=== PATIENT | male | born 1950 | race Caucasian/White ===

== ENCOUNTER 2016-09-15 19:28 | Inpatient (IN) | payer MEDICARE ==
[2016-09-15] MEDS ORDERED: SODIUM CHLORIDE 0.9% 2,000 ML ONE (19:50)
[2016-09-15] MEDS ORDERED: ACETAMINOPHEN 500 MG TABLET ONE (19:50)
[2016-09-15] MEDS ORDERED: ALBUTEROL/IPRATROPIUM 2.5/0.5 MG 3 ML/EACH DOSE ONE (19:58)
[2016-09-15 20:05] LABS: ABSOLUTE NEUTROPHIL COUNT 4.4 K/mm3 (1.8-7.7); BASO % 0.5 % (0.2-1.0); EOS % 0.2 % (0.9-2.9); HEMATOCRIT 41.3 % (32.0-52.0); HEMOGLOBIN 13.7 gm/l (14.0-18.0); IMM NEUT% 0.3 % (0-1); LYMPH # 0.4 (1.0-4.8); LYMPH % 7.1 % (15-45); MEAN CELL VOLUME 97.6 fl (80.0-94.0); MEAN CORPUSCULAR HEMOGLOBIN 32.4 pg (27.0-31.0); MEAN CORPUSCULAR HGB CONC 33.2 g/dl (33.0-37.0); MEAN PLATELET VOLUME 12.2 fl (7.4-10.4); MONO # 1.1 (0.0-0.8); MONO % 18.4 % (4-12); NEUT % 73.5 % (43-75); PLATELET COUNT 138 K/mm3 (130-400); RED CELL DISTRIBUTION WIDTH 15.2 % (11.5-14.5)
[2016-09-15 20:10] LABS: ALB/GLOB RATIO 1.4 (>1.0); ALBUMIN 4.2 gm/dL (3.5-5.7)
[2016-09-15 20:15] LABS: TROPONIN I 0.03 ng/ml (0.0-0.06)
[2016-09-15] MEDS ORDERED: CEFTRIAXONE 1 GRAM DUPLEX 50 ML IV ONE (20:31)
[2016-09-15] MEDS ORDERED: AZITHROMYCIN 500 MG VIAL ONE (20:32)
[2016-09-15] MEDS ORDERED: SODIUM CHLORIDE 0.9% 250 ML IV ONE (20:33)
--- NOTE | 2016-09-15 20:41 | RAD ---
History: Weakness with diagnosis of pneumonia 3 days ago. Comparison: None. Technique: 2 views Findings: Multilevel thoracic degenerative changes are present. The heart size is appropriate. There is blunting of the right costophrenic sulcus noted which may reflect a small amount of pleural fluid or pleural thickening. No gross consolidation is seen. The hilar and mediastinal structures are intact. Impression: 1. Blunting of the right costophrenic sulcus which may reflect pleural fluid or pleural thickening. 2. Multilevel thoracic degenerative changes. 3. No gross consolidation visualized.
[2016-09-15] MEDS ORDERED: Oseltamivir Phosphate 75 MG CAP ONE (20:58)
[2016-09-15] MEDS ORDERED: INSULIN ASPART (DOSE) 100 UNITS/1 ML SUB-Q PRN (21:38)
[2016-09-15] MEDS ORDERED: SODIUM CHLORIDE 0.9% 100 ML IV PRN (21:38)
[2016-09-15] MEDS ORDERED: BLISTEX LIPSTICK 1 EACH TP PRN (21:38)
[2016-09-15] MEDS ORDERED: CALCIUM CARBONATE 500 MG TAB.CHEW PO PRN (21:38)
[2016-09-15] MEDS ORDERED: MENTHOL/CETYLPYRD 1 EACH LOZENGE PO PRN (21:38)
[2016-09-15] MEDS ORDERED: MAGNESIUM HYDROXIDE 30 ML UDCUP PO PRN (21:38)
[2016-09-15] MEDS ORDERED: BISACODYL 10 MG SUP PR PRN (21:38)
[2016-09-15] MEDS ORDERED: BISACODYL 5 MG TABLET.EC PO PRN (21:38)
[2016-09-15] MEDS ORDERED: ENOXAPARIN SODIUM 40 MG/0.4 ML SYRINGE SUB-Q SCH (21:45)
[2016-09-15] MEDS ORDERED: INSULIN GLARGINE (DOSE) 100 UNITS/ML UNIT SUB-Q SCH (21:45)
[2016-09-15 21:51] VITALS: BMI 30.4
[2016-09-15] MEDS ORDERED: ALBUTEROL/IPRATROPIUM 2.5/0.5 MG 3 ML/EACH DOSE NEB PRN (21:51)
[2016-09-15] MEDS ORDERED: ALBUTEROL NEB 2.5 MG/3 ML VIAL.NEB NEB PRN (21:51)
[2016-09-15] MEDS ORDERED: PUMP TUBING ONE (22:22)
[2016-09-15] MEDS: SODIUM CHLORIDE 0.9% 1,000 ML IV SCH (22:39)
[2016-09-16] MEDS: SODIUM CHLORIDE 0.9% 1,000 ML IV SCH ×2 (00:17→01:34)
[2016-09-16] MEDS ORDERED: ACETAMINOPHEN 325 MG TABLET PO PRN (02:00)
[2016-09-16 07:03] LABS: ABSOLUTE NEUTROPHIL COUNT 2.7 K/mm3 (1.8-7.7); BASO % 0.5 % (0.2-1.0); EOS % 0.2 % (0.9-2.9); HEMATOCRIT 37.9 % (32.0-52.0); HEMOGLOBIN 12.5 gm/l (14.0-18.0); IMM NEUT% 0.5 % (0-1); LYMPH # 0.7 (1.0-4.8); LYMPH % 15.5 % (15-45); MEAN CELL VOLUME 97.4 fl (80.0-94.0); MEAN CORPUSCULAR HEMOGLOBIN 32.1 pg (27.0-31.0); MEAN PLATELET VOLUME 11.4 fl (7.4-10.4); MONO # 0.8 (0.0-0.8); MONO % 18.1 % (4-12); NEUT % 65.2 % (43-75); PLATELET COUNT 97 K/mm3 (130-400); RED CELL DISTRIBUTION WIDTH 15.2 % (11.5-14.5)
--- NOTE | 2016-09-16 07:17 | HP ---
Derek Cross [id number] DATE OF ADMISSION: 09/15/2016 CHIEF COMPLAINT: Cough, non-injury fall, influenza, and fever. HISTORY OF PRESENT ILLNESS: The patient is a 66-year-old male who reports he has been sick with a cough for about 3 weeks. He was seen at urgent care in [place] and was placed on azithromycin a couple of days ago. Today he had a near fall as his chair rolled out from him, but his noted that he was quite weak. He denies syncope. He was brought to the emergency room and his chest x-ray was read as being okay, but he was noted to have a fever, tachycardia, and borderline increased lactate with an elevated creatinine noted. He is referred to the hospitalist service for treatment of influenza and possible community acquired pneumonia with sepsis. PAST MEDICAL HISTORY: Remarkable for injured rotator cuff, history of psoriatic arthritis on Methotrexate, diabetes mellitus type 2 on metformin, hypertension, history of gallstones, history of nephrolithiasis. PAST SURGICAL HISTORY: Remarkable for lithotripsy and he has had several moles removed. IMMUNIZATIONS: He did not get a flu shot this year, but did get his pneumovax in the last year. ALLERGIES: No known drug allergies. MEDICATIONS: He takes: 1. Six pills of methotrexate on Thursday and did take his dose today. 2. Metformin 500 mg two by mouth twice daily. 3. Crestor 10 mg half by mouth daily. 4. He thinks he takes lisinopril, uncertain dosage daily. 5. He also takes vitamin D3. 6. Multivitamin. 7. Folic acid. 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 He lives in house in [place] with his . He has four children. He quit smoking in 1993. He reports may be one drink of alcohol per month. He is Confucianism. Hobbies include gardening and building. FAMILY HISTORY: Father at 74 of cancer of the prostate. Mom in 93 of old age. REVIEW OF SYSTEMS: Eyes have been okay, but he notes his right eye stings a little. Ears are okay. Nose is okay. Mouth is okay. Teeth are okay. Neck is okay. Cough with some green sputum noted. No heart complaints. No stomach complaints. No vomiting. No diarrhea. No urinary complaints. He has psoriasis, but skin manifestation and joint manifestations are well controlled with Methotrexate. He does not have a history of stroke. He indicates it is okay to attempt resuscitation in the event of a code status. PHYSICAL EXAMINATION: GENERAL: Slightly sweaty male. VITAL SIGNS: He is afebrile now, but had a temperature that was elevated on initial presentation to the emergency room. Heart rate 92, respirations 13, 95% saturation on room air, blood pressure 120/57. HEENT: Head is normocephalic, atraumatic. Eyes are unremarkable. Ears are normal bilaterally. Nose is normal. Mouth is unremarkable. Dentition is good. NECK: Supple. No jugular venous distention. LUNGS: Some scattered wheezes noted. A few rare crackles and rhonchi noted at the bases bilaterally. HEART: Slightly tachycardic, but regular. No murmur is noted. ABDOMEN: Obese, nontender, nondistended. Bowel sounds are normal. No rebound, no guarding. GENITOURINARY: Deferred. EXTREMITIES: Ankles are without edema. Feet without ulcerations. Nails in good condition bilaterally. Pulses are good. Capillary refill is good. NEURO: Patient is slightly tired, but generally answers appropriately. LABORATORY: Lab show a white count of 6.0, hemoglobin 13.7, platelets 138, lactate 2.2 taken at 7:50 p.m. Sodium 134, potassium 4.2, chloride 99, CO2 23, BUN 25, creatinine 1.7, glucose 175, calcium 10.0, AST 61, ALT 84, alk phos 39, albumin 4.2, globulin 3.1, CK-MB 1.0, troponin 0.03. Influenza A was positive. DIAGNOSTICS: Chest x-ray, blunting of costophrenic sulcus on the right, pleural fluid versus pleural thickening, thoracic degenerative changes, no obvious consolidation. ASSESSMENT AND PLAN: 1. Acute influenza, duration of symptoms not exactly clear, but will anticipate treating with Tamiflu. 2. Concern for community acquired pneumonia, unspecified bacterial cause with symptoms over the last couple weeks. His chest x-ray presentation may be altered by his use of the methotrexate and his recent use of azithromycin, so will treat with Rocephin and azithromycin at this time. 3. Diabetes mellitus type 2. We will be holding metformin for now. Blood sugar is mildly elevated. Will use Lantus sliding scale and capillary blood glucoses. 4. Presumed acute kidney injury. His creatinine is 1.7 with a glomerular filtration rate estimated around 40. We will be holding the lisinopril. Plan intravenous fluids and recheck in the morning and will need adjust his Tamiflu dose for this. 5. Sepsis due to number one and number two, suspect this is sepsis rather than severe sepsis. We will be monitoring lactate and anticipate 30mL/1kg intravenous fluid started in the emergency department. 6. Full code status. 7. Psoriatic arthritis and psoriasis on methotrexate and folic acid. He already took his medicine today. 8. Venous thrombosis prophylaxis. Anticipate use of Lovenox. JOB: [id number] CC: Dr. Priya Richard in [place]
[2016-09-16 07:48] LABS: ALB/GLOB RATIO 1.4 (>1.0); ALBUMIN 3.3 gm/dL (3.5-5.7); CALCIUM 8.5 mg/dL (8.6-10.3)
[2016-09-16] MEDS ORDERED: MULTIVITAMINS 1 TAB TABLET PO SCH (09:00)
[2016-09-16] MEDS ORDERED: DOCUSATE SODIUM 100 MG CAPSULE PO SCH (09:00)
[2016-09-16] MEDS ORDERED: FOLIC ACID 1 MG TABLET PO SCH (09:00)
[2016-09-16] MEDS ORDERED: OSELTAMIVIR PHOSPHATE 30 MG/5 ML SYRINGE PO SCH (09:00)
--- NOTE | 2016-09-16 10:37 | PDOC43 ---
- Subjective Chief Complaint: Cough, dyspnea Patient reports feeling quite a bit better today. Still wheezing, but otherwise , feeling ok, and ate breakfast today. - Objective Vital Signs Temperature 98.1 F 09/16/16 07:47 Pulse Rate 58 09/16/16 07:47 Respiratory Rate 16 09/16/16 07:47 Blood Pressure 108/59 09/16/16 07:47 O2 Saturation by Pulse Oximetry 98 09/16/16 07:47 Oxygen Delivery Method Room Air Oxygen Flow Rate 0 Vital Signs Last 12 Hours Temp Pulse Resp BP Pulse Ox 09/16/16 07:47 98.1 F 58 16 108/59 98 09/16/16 07:30 98 09/16/16 03:50 98.0 F 67 18 100/66 98 09/16/16 03:33 18 09/15/16 23:45 97.9 F 65 18 97/66 97 Intake and Output 09/14/16 09/15/16 09/16/16 23:59 23:59 23:59 Intake Total 4480 Output Total 2300 Balance 2180 General: Alert, Cooperative, No Acute Distress Lungs: Other (bilat wheezes ant and posterior, good air movement. Good sats on RA) Cardiovascular: Regular Rate and Rhythm Abdomen: Soft, Normal Bowel Sounds, Non-Distended Extremities: No Edema Neurological: Normal Speech Psych/Mental Status: Normal Mood, Other (appears to be feeling much better today.) Laboratory 09/16/16 06:55 09/16/16 06:55 09/16/16 09/15/16 06:55 22:30 RBC 3.89 L MCV 97.4 H MCH 32.1 H RDW 15.2 H Estimated GFR 50 L POC Capillary Glucose 154 H Calcium 8.5 L AST 44 H ALT 63 H Alkaline Phosphatase 30 L Total Protein 5.7 L Albumin 3.3 L Current Medications: Current meds reviewed in EMR. Active Medications Acetaminophen (Tylenol) 650 mg PO Q6H PRN PRN Reason: Pain or Temperature > 100.5 F Albuterol Sulfate (Ventolin Inhalation Solution (Dose)) 2.5 mg NEB Q4H PRN PRN Reason: Wheezing Albuterol/Ipratropium (Duoneb) 3 ml NEB Q6H PRN PRN Reason: Wheezing Benzocaine/Menthol (Cepacol) 1 each PO PRN PRN PRN Reason: Sore Throat Bisacodyl (Dulcolax) [address] DAILY PRN PRN Reason: Constipation Bisacodyl (Dulcolax) 5 mg PO DAILY PRN PRN Reason: Constipation Calcium Carbonate/Glycine (Tums) 500 mg PO Q4H PRN PRN Reason: Indigestion Docusate Sodium (Colace) 100 mg PO BID [facility] Last Admin: 09/16/16 09:29 Dose: 100 mg Enoxaparin Sodium (Lovenox) 40 mg SUB-Q Q24H [facility] Last Admin: 09/15/16 22:43 Dose: 40 mg Folic Acid (Folic Acid) 2 mg PO DAILY [facility] Last Admin: 09/16/16 09:29 Dose: 2 mg Azithromycin 500 mg/ Sodium (Chloride) 250 mls @ 250 mls/hr IV Q24H [facility] Stop: 09/17/16 21:59 Ceftriaxone Sodium/Dextrose (Rocephin 1 Gram Premix) 50 mls @ 100 mls/hr IV Q24H [facility] Sodium Chloride (Sodium Chloride 0.9%) 100 mls @ 25 mls/hr IV PRN PRN PRN Reason: Flush Insulin Aspart (Novolog (Dose)) 0 units SUB-Q WM/BEDTIME PRN; Protocol PRN Reason: Blood Sugar > Insulin Glargine (Lantus (Dose)) 15 units SUB-Q Q24H [facility] Last Admin: 09/15/16 22:38 Dose: 15 units Magnesium Hydroxide (Milk Of Magnesia) 30 ml PO DAILY PRN PRN Reason: Constipation Multivitamins (One-A-Day) 1 tab PO DAILY [facility] Last Admin: 09/16/16 09:28 Dose: 1 tab Oseltamivir Phosphate (Tamiflu) 30 mg PO BID [facility] Stop: 09/20/16 09:01 Last Admin: 09/16/16 09:28 Dose: 30 mg Petrolatum/Paraffin/Mineral Oil (Blistex) 1 each TP PRN PRN PRN Reason: Dry and/or chapped lips Sodium Chloride (Normal Saline 10ml Flush) 10 - 50 ml IV PRN PRN PRN Reason: IV Flush Last Admin: 09/16/16 04:37 Dose: 10 ml Sodium Chloride (Normal Saline 10ml Flush) 10 ml IV Q8HR [facility] Last Admin: 09/16/16 09:28 Dose: 10 ml - Problems: Assessment/Plan (1) Influenza A Status: Acute Assessment/Plan: Anticipate DC to home, on increased dose Tamiflu (renal status improved). (2) Community acquired bacterial pneumonia Status: Suspected Assessment/Plan: Anticipate pt to finish azithromycin previously prescribed, with Ceftin. Has follow up with PCP next week. (3) Elevated serum creatinine Status: Acute Assessment/Plan: Modest improvement in creatinine with IVF. 1.7->1.4. Return to full dose Tamiflu. Anticipate holding COLLIN-I; follow up with PCP regarding metformin (4) Sepsis Qualifiers: Sepsis type: sepsis due to unspecified organism Qualifier Code: (A41.9 ) Sepsis, unspecified organism Status: Suspected Assessment/Plan: Clinically much improved today. (5) Diabetes mellitus type II, controlled Qualifiers: Chronic kidney disease stage: stage 3 (moderate) Status: Chronic Assessment/Plan: Patient with good glucose control now on Lantus. Normally on metformin; consider DC on metformin again (6) Psoriatic arthritis Status: Chronic Assessment/Plan: Stable, appears to be doing well. To make sure he is feeling well about whether to take add'l MTX next Thursday. VTE Prophylaxis: enoxaparin Disposition: Anticipate DC to home today.
--- NOTE | 2016-09-16 10:46 | RAD ---
History: Follow-up possible pneumonia. Comparison: 09/15/2016. Technique: 2 views Findings: Multilevel thoracic degenerative changes are identified. The heart size is stable. There is blunting of the right costophrenic sulcus again observed as an appearance similar to that seen on prior exam. No gross consolidation or pneumothorax is visualized. The hilar and mediastinal structures are stable. Impression: 1. Stable blunting of the right costophrenic sulcus which may reflect a small amount of pleural fluid or pleural thickening.
[2016-09-16 11:23] VITALS: BP 111/68
--- NOTE | 2016-09-16 11:50 | DS ---
Derek Cross [id number] DATE OF ADMISSION: 09/15/2016 DATE OF DISCHARGE: 09/16/2016 DISCHARGE DIAGNOSES: 1. Influenza A. 2. Suspected bacterial community acquired pneumonia organism not identified. 3. Acute kidney injury with creatinine 1.7 on admission and improved to 1.4 on September 16. 4. Sepsis, resolved. 5. Psoriatic arthritis on methotrexate. 6. Diabetes mellitus type 2 on metformin. 7. Full code status. 8. Mild elevation of liver enzymes. REASON FOR ADMISSION: The patient is a 66-year-old male who had been sick with some cough for the last three weeks or so. He was seen in urgent care in [place] and started on azithromycin a couple days prior to admission. The day of admission he had a near fall and his noted that he was quite weak. He denied syncope or other injury. He was brought to the emergency room at [facility] and his chest x-ray was read as being okay, but he was noted have fever, tachycardia, and borderline increased lactate with an elevated creatinine noted. He was referred to the hospitalist service for treatment of influenza and possible community acquired pneumonia with sepsis. On initial presentation to the emergency room, patient had a temperature to 102.6, 96% saturation on room air, pulse 105, respirations 22, blood pressure 152/75. Later on he had a decrease in blood pressure as low as 92/64, but his temperature had improved the entire time he was on the floor here. He maintained saturations on room air and pulse rate improved to 67 by the morning of September 16. His official chest x-ray reading on admission was blunting of the right costophrenic sulcus which may reflect pleural fluid and pleural thickening, multilevel thoracic degenerative changes, and no gross consolidation. His follow up chest x-ray on the demonstrated stable blunting of the right costophrenic sulcus which may reflect a small amount of pleural fluid or pleural thickening. He received 30mL/1kg of normal saline IV fluids and was given renally adjusted Tamiflu for his influenza along with azithromycin and ceftriaxone for suspected bacterial pneumonia. His metformin was held and he received Lantus and sliding scale insulin with excellent control of blood sugars being a reading of 108 on the morning of 09/16/2016. His admission blood sugar was 175. Patient's admission white blood cell count was 6.0 with a hemoglobin of 13.7. Follow up white count was 4.2, hemoglobin 12.5. His lactate was 2.2 on admission and improved to 1.4. His creatinine was 1.7 on admission and improved to 1.4. Liver enzymes were mildly elevated, etiology not clear with an AST of 61 and ALT 84 which, improved to AST 44 and ALT of 63. His troponin was 0.03 and CK-MB 1.0. Influenza testing was positive for influenza A. HOSPITAL COURSE: By the morning of 09/16/2016 the patient reported feeling much better and is anticipated to be discharged to home. DISCHARGE MEDICATIONS: Anticipated to be: 1. Albuterol 1 to 2 puffs inhaled every 4 hours as needed. 2. Azithromycin 250 mg daily, he will complete the course that he started prior to admission. 3. Cefuroxime 500 mg by mouth twice daily. 4. Folic acid 2 mg daily. 5. Losartan, he is currently on 25 mg a day, but that has to be held until he speaks with his primary care provider regarding this. 6. Metformin 1000 mg by mouth twice daily is resumed. 7. Methotrexate 15 mg by mouth on Thursday, however, if he is not feeling completely well he may check with his primary care provider on this. 8. Multivitamin 1 by mouth daily. 9. Tamiflu resumed to the normal dose due to improvement in renal function at 75 mg by mouth twice daily x4 more days. 10. Crestor 5 mg daily. 11. Vitamin D 3000 units by mouth daily. ACTIVITY: As tolerated. FOLLOW UP: He is to follow up if having worsening illness, short of breath, or more fevers. His follow up will be with Dr. Priya Richard in the next week. JOB: [id number] CC: Dr. Priya Richard
[2016-09-16] MEDS ORDERED: CEFTRIAXONE 1 GRAM DUPLEX 50 ML IV SCH (20:30)
[2016-09-16] MEDS ORDERED: AZITHROMYCIN 500 MG in SODIUM CHLORIDE 0.9% 250 ML IV SCH (21:00)
== END 2016-09-16 11:45 | disposition home or self-care (01) | DRG 871 ==
LOC: ED 19:28 → MS 20:56 → OBSVTOIN 21:38
PROVIDERS: ADMIT Family Medicine; ATTEND Family Medicine
DX: A41.89 Other specified sepsis (principal); J09.X1 Influenza due to identified novel influenza A virus with pneumonia; J15.9 Unspecified bacterial pneumonia; N17.9 Acute kidney failure, unspecified; L40.50 Arthropathic psoriasis, unspecified; E11.9 Type 2 diabetes mellitus without complications; Z79.84 Long term (current) use of oral hypoglycemic drugs; I10 Essential (primary) hypertension